=== PATIENT | male | born 1985 | race Hispanic/Latino ===

== ENCOUNTER 2023-04-04 07:05 | Day surgery (SDC) | payer OTHER ==
[2023-04-02 12:55] LABS: BASOPHILS # (AUTO) 0.05 K/uL (0.00-0.20); BASOPHILS % (AUTO) 0.8 % (0.0-5.0); EOSINOPHILS # (AUTO) 0.06 K/uL (0.00-0.70); HEMATOCRIT 47.8 % (42-54); IMMATURE GRANULOCYTE ABSOLUTE 0.01 K/uL (0-1); LYMPHOCYTES # (AUTO) 2.6 K/uL (1.0-4.8); LYMPHOCYTES % (AUTO) 41.3 % (21.0-51.0); MEAN CORPUSCULAR HEMOGLOBIN 29.7 pg (27.0-33.0); MEAN CORPUSCULAR HGB CONC 34.7 g/dL (32.0-36.0); MEAN CORPUSCULAR VOLUME 85.5 fL (79-99); MONOCYTES # (AUTO) 0.5 K/uL (0.1-1.0); MONOCYTES % (AUTO) 8.7 % (3.0-13.0); PLATELET COUNT (AUTO) 295 K/uL (130-400); RED BLOOD CELL COUNT(AUTO) 5.59 MIL/uL (4.50-6.20); RED CELL DISTRIBUTION WIDTH 12.1 % (11.0-15.5); WHITE BLOOD COUNT (AUTO) 6.2 K/uL (4.8-10.8)
[2023-04-02 13:03] LABS: CREATININE 0.9 mg/dL (0.5-1.5); POTASSIUM 4.2 mmol/L (3.5-5.1)
[2023-04-02 13:35] VITALS: BP 140/82; PULSE 74; RESP 16
[2023-04-04] VITALS (17 sets, daily range): BP systolic 121–142; BP diastolic 59–89; PULSE 53–80; RESP 9–18
[~2023-04-04] VITALS: Ht 172.7 cm; Wt 80.9 kg
[~2023-04-04 07:05] MED LIST: 0.9%NACL 1000ML 1,000 ML IV SCH; CEFAZOLIN SODIUM 1 GM VIAL IVPB PRN; CEFAZOLIN SODIUM 2 GM VIAL ONE; LACTATED RINGERS 1000ML 1,000 ML IV ONE
[2023-04-04] MEDS ORDERED: LIDOCAINE 1%-EPI 1:100,000 20 ML VIAL IJ ONE (07:16)
[2023-04-04] MEDS ORDERED: BUPIVACAINE/PF 0.25% 30ML VIAL IJ ONE ×2 (07:16→08:09)
[2023-04-04] MEDS ORDERED: FAMOTIDINE 20MG VIAL IV ONE (07:35)
[2023-04-04] MEDS ORDERED: HYDROMORPHONE 1 MG INJ ONE (07:35)
[2023-04-04] MEDS ORDERED: DEXMEDETOMIDINE HCL 200 MCG/2 ML VIAL IV ONE (07:36)
[2023-04-04] MEDS ORDERED: PHENYLEPHRINE HCL 10 MG/ML 1ML VIAL IV ONE (07:41)
[2023-04-04] MEDS ORDERED: MIDAZOLAM HCL 1 MG/ML 2ML VIAL ONE (07:46)
[2023-04-04] MEDS ORDERED: LIDOCAINE PF 100MG/5ML (2%) SYRINGE 5ML ONE (07:48)
[2023-04-04] MEDS ORDERED: GLYCOPYRROLATE 1 MG/5 ML SYRINGE ONE (07:48)
[2023-04-04] MEDS ORDERED: PROPOFOL 10 MG/ML 20ML VIAL IV ONE (07:48)
[2023-04-04] MEDS ORDERED: FENTANYL CITRATE PF 50 MCG/1 ML 2ML VIAL ONE (07:49)
[2023-04-04] MEDS ORDERED: ROCURONIUM 10MG/1ML SYR 10 MG/ML ML ONE (07:49)
[2023-04-04] MEDS ORDERED: CEFAZOLIN SODIUM 2 GM VIAL IVPB ONE (08:01)
[2023-04-04] MEDS ORDERED: ONDANSETRON 4MG INJ ONE ×2 (08:08→09:20)
[2023-04-04] MEDS ORDERED: NEOSTIGMINE 5MG/5ML SYR IV ONE (09:01)
[2023-04-04] MEDS ORDERED: MEPERIDINE-PF 25 MG/ML SYG ONE ×2 (09:21→09:46)
[2023-04-04] MEDS ORDERED: KETOROLAC 30MG VIAL (30MG/ML) ONE (09:21)
== END 2023-04-04 11:20 | disposition home or self-care (01) ==
LOC: DAH 07:05
PROVIDERS: ATTEND Surgery
DX: K40.90 Unilateral inguinal hernia, without obstruction or gangrene, not specified as recurrent (principal); K21.9 Gastro-esophageal reflux disease without esophagitis; Z98.890 Other specified postprocedural states; Z79.899 Other long term (current) drug therapy
CPT/HCPCS: 49650; S2900; 36415; 80048; 85025; A4344; J1170; J1885; J2001; J2175; J2250; J2371; J2405; J2704; J2710; J3010; J3490; J7030; J7120; A4215; A4221; A4222; A4223; A4600; A4649; A4663; A6260; C1781; G0168; J0690